=== PATIENT | male | born 2005 | race Caucasian/White ===

== ENCOUNTER → 2025-06-08 | Outpatient (CLI) | payer OTHER ==
[~2025-06-08] MED LIST: HYDR-3713 PO
== END ==
LOC: M SOG 06:44
PROVIDERS: ATTEND Physician Assistant
DX: S62.633A Displaced fracture of distal phalanx of left middle finger, initial encounter for closed fracture (principal); S62.635A Displaced fracture of distal phalanx of left ring finger, initial encounter for closed fracture; Y93.9 Activity, unspecified; Y92.9 Unspecified place or not applicable

== ENCOUNTER → 2025-07-20 | Outpatient (CLI) | payer OTHER | LOC: M SOG 06:50 | PROVIDERS: ATTEND Orthopaedic Surgery Hand Surgery | DX: S62.633D Displaced fracture of distal phalanx of left middle finger, subsequent encounter for fracture with routine healing (principal) ==

== ENCOUNTER → 2025-09-04 | Outpatient (CLI) | payer OTHER | LOC: M SOG 07:18 | PROVIDERS: ATTEND Physician Assistant | DX: S62.633D Displaced fracture of distal phalanx of left middle finger, subsequent encounter for fracture with routine healing (principal) ==